=== PATIENT | female | born 2000 | race Caucasian/White ===

== ENCOUNTER 2023-07-26 13:55 | Emergency (ER) | payer BC, SELFPAY ==
[2023-07-26 13:58] VITALS: BP 152/82
[2023-07-26 14:41] VITALS: BMI 21.8
[2023-07-26] MEDS: NSS 1000 IV (15:02)
[2023-07-26 15:06] LABS: % Basophils 0.5 % (0-2); % Immature Granulocytes 0.4 % (0-0.5); % Lymphocytes 14.9 % (20.5-51.1); % Monocytes 4.1 % (1.7-9.3); % Neutrophils 79.1 % (42.2-75.2); Absolute Basophils 0.1 10^3/uL (0-0.2); Absolute Eosinophils 0.1 10^3/uL (0-0.7); Absolute Lymphocytes 1.7 10^3/uL (1.2-3.4); Absolute Monocytes 0.5 10^3/uL (0.1-0.6); Absolute Neutrophils 8.8 10^3/uL (1.4-6.5); Hematocrit 41.5 % (37.0-47.0); Hemoglobin 13.9 g/dL (12.0-16.0); Mean Corp Hgb Conc. 33.5 g/dL (33.0-37.0); Mean Corpuscular Hgb 28.9 pg (27.0-31.0); Mean Corpuscular Volume 86.3 fL (81.0-99.0); Nucleated Red Blood Cells % 0 %; Platelet Count 258 10^3/uL (130-400); Red Blood Cell Count 4.81 10^6/uL (4.20-5.40); Red Cell Dist. Width 13.4 % (11.5-14.5); White Blood Cell Count 11.1 10^3/uL (4.8-10.8)
--- NOTE | 2023-07-26 15:13 | ED.GENMED ---
History of Present Illness
<Iveth Covarrubias PA-C - Last Filed: 07/26/23 20:16>
General
Chief Complaint: Headache
Source: patient
Exam Limitations: none
Time Seen by Provider: 07/26/23 14:06
Nursing documentation reviewed up to this point in time: agreed with
Travel History
Have you had any contact with someone who has COVID-19?: No
Do you have any symptoms of coronavirus? Fever > 100 degrees, chills, cough, shortness of breath, sore throat, loss of taste or smell, muscle aches, or headache?: No
History of Present Illness
History of Present Illness:
Patient is a 22-year-old female with no past medical history presenting for evaluation of headache. Patient states that she had a gradual onset headache over the past 2 days with acute worsening this morning while she was lying in bed around noon.
Headache is located in her left frontal region behind her eye. There is some associated photophobia and nausea. She also endorses nasal congestion over the past few days. She denies any true visual changes, neck pain, vomiting, eye tearing,
fever, chills. She has been treating headache with ibuprofen over the past few days. She denies any falls or trauma to her head over the past few days.
Patient believes that this headache is due to a sinus infection. She went to urgent care this morning and they referred her to the emergency department for further evaluation.
Patient's last menstrual period was 1 week ago
Phy Exam
<Iveth Covarrubias PA-C - Last Filed: 07/26/23 20:16>
Physical Exam
Physical Exam:
General: In mild distress due to pain, non-toxic appearing
Vitals: Mildly hypertensive, otherwise vital signs stable; afebrile
HEENT: Atraumatic, normocephalic; pupils equal round reactive light bilaterally, sclera noninjected bilaterally, extraocular muscles intact, posterior pharynx nonerythematous, protecting airway; significant tenderness palpation on left frontal sinus
Neck: appears supple, no meningeal signs, normal range of motion
CV: Regular rate and rhythm, heart sounds normal, no evidence of cyanosis
Resp: No evidence of respiratory distress, lungs clear bilaterally
Abd: Soft, nontender, non-distended
Extremities: No deformities, no evidence of cyanosis or edema; strength 5 out of 5 in upper and lower extremities
Neuro: alert and oriented x 3; speech normal, cranial nerves II through XII intact, sensation intact, normal [id number]
Psych: Normal affect
Skin: Intact, no rashes
Course
<Iveth Covarrubias PA-C - Last Filed: 07/26/23 20:16>
Orders/Labs/Results
Orders:
Orders
07/26/23 14:21
CT Head W/o Iv Contrast Urgent
Comment:
Reason For Exam: worsening headache
Test Result ONCE
07/26/23 14:48
COVID-19 Antigen Urgent
Source: Nasal Swab
Complete Blood Count/With Diff Urgent
Comprehensive Metabolic Panel Urgent
HCG, Serum Qualitative Screen Urgent
Influenza A+B Rapid Molecular Urgent
ROSSANA Source: Nasal Swab
Specimen Description:
07/26/23 14:56
0.9% Sodium Chloride 1000 ml [Nss] 1,000 ml IV BOLUS
Acetaminophen [Tylenol] 650 mg PO NOW STA
07/26/23 15:02
Pseudoephedrine [Sudafed] 30 mg PO NOW STA
07/26/23 15:11
Diphenhydramine [Benadryl] 25 mg IV NOW STA
Metoclopramide [Reglan] 10 mg IV NOW STA
07/26/23 15:38
Ketorolac [Toradol] 15 mg IV NOW STA
07/26/23 16:11
Amoxicillin 875 mg/Clav 125 mg [Augmentin 875 mg/125 mg] 1 tablet PO NOW STA
Pseudoephedrine [Sudafed] 30 mg PO NOW STA
Abnormal Lab Results
07/26/23
14:48
WBC 11.1 H 10^3/uL
(4.8-10.8)
Absolute Neuts (auto) 8.8 H 10^3/uL
(1.4-6.5)
Neutrophils % 79.1 H %
(42.2-75.2)
Lymphocytes % 14.9 L %
(20.5-51.1)
07/26/23 14:48
07/26/23 14:48
Vital Signs
Initial and Last Documented VS:
Initial Vital Signs
Temp Pulse Resp BP Pulse Ox
98.6 F 67 18 152/82 100
07/26/23 13:58 07/26/23 13:58 07/26/23 13:58 07/26/23 13:58 07/26/23 13:58
Last Documented Vital Signs
Temp Pulse Resp BP Pulse Ox
98.6 F 67 18 152/82 97
07/26/23 13:58 07/26/23 13:58 07/26/23 13:58 07/26/23 13:58 07/26/23 14:54
<Marc Terrazas MD - Last Filed: 07/26/23 15:43>
Orders/Labs/Results
Orders:
Orders
07/26/23 14:21
CT Head W/o Iv Contrast Urgent
Comment:
Reason For Exam: worsening headache
Test Result ONCE
07/26/23 14:48
COVID-19 Antigen Urgent
Source: Nasal Swab
Complete Blood Count/With Diff Urgent
Comprehensive Metabolic Panel Urgent
HCG, Serum Qualitative Screen Urgent
Influenza A+B Rapid Molecular Urgent
ROSSANA Source: Nasal Swab
Specimen Description:
07/26/23 14:56
0.9% Sodium Chloride 1000 ml [Nss] 1,000 ml IV BOLUS
Acetaminophen [Tylenol] 650 mg PO NOW STA
07/26/23 15:02
Pseudoephedrine [Sudafed] 30 mg PO NOW STA
07/26/23 15:11
Diphenhydramine [Benadryl] 25 mg IV NOW STA
Metoclopramide [Reglan] 10 mg IV NOW STA
07/26/23 15:38
Ketorolac [Toradol] 15 mg IV NOW STA
07/26/23 16:11
Amoxicillin 875 mg/Clav 125 mg [Augmentin 875 mg/125 mg] 1 tablet PO NOW STA
Pseudoephedrine [Sudafed] 30 mg PO NOW STA
Abnormal Lab Results
07/26/23
14:48
WBC 11.1 H 10^3/uL
(4.8-10.8)
Absolute Neuts (auto) 8.8 H 10^3/uL
(1.4-6.5)
Neutrophils % 79.1 H %
(42.2-75.2)
Lymphocytes % 14.9 L %
(20.5-51.1)
07/26/23 14:48
07/26/23 14:48
Vital Signs
Initial and Last Documented VS:
Initial Vital Signs
Temp Pulse Resp BP Pulse Ox
98.6 F 67 18 152/82 100
07/26/23 13:58 07/26/23 13:58 07/26/23 13:58 07/26/23 13:58 07/26/23 13:58
Last Documented Vital Signs
Temp Pulse Resp BP Pulse Ox
98.6 F 67 18 152/82 97
07/26/23 13:58 07/26/23 13:58 07/26/23 13:58 07/26/23 13:58 07/26/23 14:54
<Iveth Covarrubias PA-C - Last Filed: 07/26/23 20:16>
MDM/Problems Addressed
Differential Diagnosis Includes:
Acute sinusitis, viral illness, migraine headache, cluster headache, tension headache, meningitis, intraparenchymal bleed
MDM/Problems Addressed:
Patient is a 22-year-old female with history of frequent sinus infections presenting with a few days of headache and nasal congestion with acute worsening this morning. Patient with dull headache over left frontal sinus for the past few days and
around noon today noticed acute onset worsening. No fever, chills, neck pain. Patient is mildly hypertensive, otherwise vital signs stable. She is afebrile. Physical exam as document above. She has a normal neurologic exam and no meningeal
signs. She does have significant tenderness over her left frontal sinus. Given acute onset nature of headache will obtain head CT. Will check basic labs and viral swabs. Plan to give Sudafed/Tylenol for headache�patient states she cannot. Will
start IV fluids and give Reglan/Benadryl for headache.
Patient with very mild leukocytosis otherwise no clinically significant abnormalities on labs. COVID and flu swabs were negative. Head CT shows complete opacification of the left frontal sinus consistent with sinusitis. No other acute
intracranial abnormality noted. This is consistent with location of patient's headache.
Given there is no evidence of bleed�will give 15 IV Toradol, Sudafed, Augmentin. Will reassess.
Patient states headache is significantly improved following Toradol. Patient is stable for discharge with return precautions. Will start course of Augmentin for sinusitis, Flonase. Will provide referral for ENT. Patient comfortable this plan.
All questions answered.
Chronic conditions affecting care:
N/A
Acute Exacerbation and/or Progression of Chronic Illness:
Acute sinusitis
<Iveth Covarrubias PA-C - Last Filed: 07/26/23 20:16>
*Radiology
Radiology exam reviewed: preliminary read by ED provider and radiology read reviewed
*Pulse Oximetry
Patient hypoxic: no
*[employer] Interpretation
Rate: [employer] [facility]- N/A
*Critical Care Note
Total Time (30-74mins, 75-104mins- exclusive of procedures): Not Applicable
ED Attending Note
<Iveth Covarrubias PA-C - Last Filed: 07/26/23 20:16>
-
Portions of this chart may have been created with voice recognition software.� Occasional wrong word or��sound alike� substitutions may have occurred due to the inherent limitations of voice recognition software.
<Marc Terrazas MD - Last Filed: 07/26/23 15:43>
ED Attending Note
Patient seen and examined by attending physician: Yes
ED Attending Note:
HPI: 22-year-old female with no chronic medical issues who presents to the emergency department for evaluation of headache. Patient reports that she has been sick with congestion and mild headache for the past 2 to 3 days. She reports headache is
a pressure sensation in the left forehead and maxillary region. She says that she had been controlling it with ibuprofen for the past few days. She says this morning she felt her headache got a lot worse and so she came to the emergency room for
assessment. She has had some nausea no vomiting. She denies any fever. She denies any neck pain or stiffness. She denies any flashes/floaters or aura. She denies any change in her vision or pain in the eye. She denies any other complaints
today. She denies trauma to the head and denies similar symptoms in the past.
ROS: Positive for congestion, headache, nausea; negative for vision changes, neck pain, neck stiffness, vomiting
Physical exam:
General: Awake, alert, oriented x3; no acute distress
Head: Normocephalic, atraumatic; she does have some tenderness in the left frontal and maxillary sinuses but no erythema or swelling of the face
Eyes: Conjunctiva normal, EOMI, pupils equal round reactive to light bilaterally
Ears: TMs clear bilaterally
Nose: Some swelling, erythema of the nasal turbinates bilaterally
Throat: Airway intact, handling secretions
Neck: Trachea midline, supple without meningismus
Lungs: Breathing comfortably no distress
Heart: Regular rate
Neuro: Cranial nerves intact 2-12, speech fluent with no dysarthria, no motor or sensory deficits
Skin: no rash
Extremities: No edema in extremities, warm well-perfused
Differential diagnosis: Sinusitis/sinus headache, tension headache, migraine headache, somewhat lower clinical suspicion for emergent pathology such as subarachnoid hemorrhage; very low suspicion for meningitis
Medical decision makin-year-old female presents for evaluation of gradual onset headache over the past few days worse this morning associated with significant nasal congestion and tenderness of the sinuses. Hypertensive but otherwise normal
vitals. Physical exam as above. Will plan to check CT head. Check basic labs and hCG. Swab for COVID and flu. Plan to treat with decongestant, Tylenol, fluids to start.
Patient reportedly has trouble swallowing pills will hold decongestant and Tylenol instead treat with Reglan/Benadryl, Toradol for headache and continue with fluids. Reviewed initial labs her CBC is significant for slight leukocytosis, CMP
unremarkable, hCG negative, viral swabs negative. Awaiting CT head results�imaging initially reviewed by me no clear acute hemorrhage or other acute pathology noted.
Chronic conditions affecting care: N/A
Acute exacerbation or progression of chronic illness: Hypertensive
History source: Patient
Data reviewed: N/A
Medications/testing considered: N/A
Social determinants of health: N/A
Discussion with other providers: N/A
Discharge Plan
Departure
Patient Disposition: Home (Routine Discharge)
Date of Disposition: 07/26/23
Time of Disposition: 17:02
Patient with high blood pressure during this ER visit?: Yes
Discharge Problem:
Acute sinusitis
Instructions: Sinusitis, Adult (DC)
Prescriptions:
New
amoxicillin-pot clavulanate 875-125 mg tablet
1 tab PO BID 10 Days Qty: 20 0RF
fluticasone propionate [Flonase Allergy Relief] 50 mcg/actuation spray,suspension
1 spray intranasal BID Qty: 16 0RF
No Action
prednisone 10 MG tablet
10 mg PO Daily Qty: 15 0RF
Rx Instructions:
Take 5 tablets on day 1 then taper 4,3,2,1 after.
sucralfate 1 GM/10 ML suspension
1 gm PO QID Qty: 10 0RF
docusate sodium [Colace] 100 MG capsule
100 mg PO BID Qty: 20 0RF
Referrals:
Marc Burks MD [Active] - Call in 1-3 days for appt (ENT)
Tahir Curry MD [Family Provider] -
Activity Restrictions/Additional Instructions:
Thank you for visiting the Emergency Department at [facility].
1. Please schedule a follow up appointment as directed. Call first thing tomorrow morning to make an appointment.
2. If indicated, please take your medications as instructed and indicated on discharge paperwork.
3. If any of your symptoms do not improve, or persist, or become more severe within 6-12 hours, please return to the emergency department for further care.
4. Please return to the emergency department if you develop a headache, neck pain/stiffness, fever greater than 100.4F, chest pain, shortness of breath, persistent nausea, vomiting, slurred speech, difficulty walking, numbness/tingling, weakness,
signs of infection or any other symptoms that are worrisome to you.
Please call [phone] if you have any questions.
Interventions
Interventions:
*Risk Screen - Suicide Last Done: 07/26/23 14:49
*General Assessment Last Done: 07/26/23 14:49
*Neglect/Abuse Screening Last Done: 07/26/23 14:49
*ED COVID-19 Vaccine History Last Done: 07/26/23 14:49
*Nursing Disposition Last Done: 07/26/23 17:00
ED- Neurological Assessment Last Done: 07/26/23 14:54
Discharge Date and Time
Discharge Date/Time: 07/26/23 17:00
[2023-07-26] MEDS: BENADRYL 25 MG IV (15:17)
[2023-07-26 15:19] LABS: HCG, Serum Qualitative Screen Negative
[2023-07-26] MEDS: REGLAN 10 MG IV (15:19)
[2023-07-26 15:20] LABS: COVID-19 Antigen Negative (Negative)
[2023-07-26 15:22] LABS: ALT (SGPT) 16 U/L (0-35); AST (SGOT) 25 U/L (14-36); Albumin 4.6 g/dl (3.5-5.0); Alkaline Phosphatase 99 U/L (38-126); Blood Urea Nitrogen 14 mg/dl (7-17); Calcium 9.8 mg/dl (8.4-10.2); Carbon Dioxide 28 mmol/L (22-30); Chloride 99 mmol/L (98-107); Estimated Creatinine Clearance 109 ml/min; Glucose 92 mg/dl (70-99); Potassium 4.1 mmol/L (3.5-5.1); Sodium 135 mmol/L (135-145); Total Bilirubin 0.4 mg/dl (0.2-1.3); Total Protein 6.9 g/dl (6.3-8.2); eGFR > 60.00
[2023-07-26] MEDS: TORADOL 15 MG IV (15:59)
[2023-07-26] MEDS: SUDAFED 30 MG PO (16:16)
[2023-07-26] MEDS: AUGMENTIN 875 MG/125 MG 1 TABLET PO (16:16)
== END 2023-07-26 17:00 | disposition home or self-care (01) ==
LOC: EMR 13:55
PROVIDERS: EMERGENCY PHYSICIAN Emergency Medicine; FAMILY PHYSICIAN Family Medicine
DX: J01.90 Acute sinusitis, unspecified (principal); R03.0 Elevated blood-pressure reading, without diagnosis of hypertension; Z11.52 Encounter for screening for COVID-19
CPT/HCPCS: 99284; 96374; 96375 ×2; 96361; 70450; 80053; 84703; 85025; 87502; 87811

== ENCOUNTER 2024-07-06 06:22 | Day surgery (SDC) | payer BC, SELFPAY | END 2024-07-06 12:51 | disposition home or self-care (01) | LOC: GI 06:22 | PROVIDERS: ATTENDING PHYSICIAN Surgery | DX: K62.5 Hemorrhage of anus and rectum (principal); K64.0 First degree hemorrhoids | CPT/HCPCS: 45378; 46221 ==

== ENCOUNTER 2024-11-06 09:07 | Emergency (ER) | payer OTHER, SELFPAY ==
[2024-11-06 09:11] VITALS: BP 135/97
[2024-11-06 10:07] VITALS: BMI 21.4
[2024-11-06 10:09] VITALS: BP 123/92
--- NOTE | 2024-11-06 10:28 | ED.GENMED ---
History of Present Illness
General
Chief Complaint: Headache
Time Seen by Provider: 11/06/24 10:03
History of Present Illness
History of Present Illness:
24-year-old female presents emergency department for evaluation of severe left frontal and occipital headache that woke her up from sleep at about 5 to 5:30 AM today. Headache feels somewhat comparable to her previous sinus issues however has never
had occipital pain with this. Has been vomiting as a result of the headache. Has prior issues with chronic sinusitis for which she sees an ENT but has never had this severe pain. Took Afrin and no [id number] medications otherwise. No
history of migraines
Review of Systems
Review of Systems
Allergies reviewed?: Yes
All Other Systems: ROS reviewed and negative except as documented in HPI and ROS
Phy Exam
Physical Exam
Physical Exam:
GEN: Well appearing, NAD, WDWN
HEENT: Oral mucosa moist, no scleral icterus, no nasal congestion
Cardiac: Regular rate
Lung: No respiratory distress, no tachypnea
MSK: No gross deformity or injuries
Skin: Good color, no pallor or jaundice, no rashes
Neuro: AO x3; CN II-XII grossly intact. BUE strength 5/5 in all allison, sensation intact and symmetric. BLE strength 5/5 in all allison, sensation intact and symmetric
Psych: Calm, cooperative
Course
Orders/Labs/Results
Orders:
Orders
11/06/24 10:28
CT Head W/o Iv Contrast Urgent
Comment:
Reason For Exam: severe headache
Test Result ONCE
11/06/24 10:30
Complete Blood Count/No Diff Urgent
Comprehensive Metabolic Panel Urgent
HCG, Serum Qualitative Screen Urgent
11/06/24 11:57
Ketorolac [Toradol] 15 mg IV NOW STA
Magnesium Sulfate 2 Gram/50 ml [Magnesium Sulfate] 2 gram in 50 ml IV NOW
Metoclopramide [Reglan] 10 mg IV NOW STA
11/06/24 12:39
Acetaminophen 1000MG/100Ml [Ofirmev] 1,000 mg in 100 ml IV ONCE
Acetaminophen IV Indication:: ED Narcotic Naive Pt-ONCE
Abnormal Lab Results
11/06/24
10:30
Glucose 111 H mg/dl
(70-99)
11/06/24 10:30
11/06/24 10:30
Vital Signs
Initial and Last Documented VS:
Initial Vital Signs
Temp Pulse Resp BP Pulse Ox
98.8 F 56 18 135/97 100
11/06/24 09:11 11/06/24 09:11 11/06/24 09:11 11/06/24 09:11 11/06/24 09:11
Last Documented Vital Signs
Temp Pulse Resp BP Pulse Ox
98.8 F 56 18 136/84 100
11/06/24 09:11 11/06/24 09:11 11/06/24 09:11 11/06/24 13:00 11/06/24 10:29
MDM/Problems Addressed
MDM/Problems Addressed:
CT of the head was obtained due to patient's acute severe nature of headache and this was reassuring. She was treated with migraine medications with good improvement in symptoms. No focal neurologic deficits and no fever warranting LP
*Pulse Oximetry
SaO2: 100
Oxygen Mode of Delivery: Room air
Patient hypoxic: no
*Critical Care Note
Total Time (30-74mins, 75-104mins- exclusive of procedures): Not Applicable
ED Attending Note
-
Portions of this chart may have been created with voice recognition software.� Occasional wrong word or��sound alike� substitutions may have occurred due to the inherent limitations of voice recognition software.
Discharge Plan
Departure
Patient Disposition: Home (Routine Discharge)
Date of Disposition: 11/06/24
Time of Disposition: 13:19
Patient with high blood pressure during this ER visit?: No
Discharge Problem:
Acute headache
Instructions: Headache, Adult (DC)
Prescriptions:
No Action
prednisone 10 MG tablet
10 mg PO Daily Qty: 15 0RF
Rx Instructions:
Take 5 tablets on day 1 then taper 4,3,2,1 after.
sucralfate 1 GM/10 ML suspension
1 gm PO QID Qty: 10 0RF
docusate sodium [Colace] 100 MG capsule
100 mg PO BID Qty: 20 0RF
amoxicillin-pot clavulanate 875-125 mg tablet
1 tab PO BID 10 Days Qty: 20 0RF
fluticasone propionate [Flonase Allergy Relief] 50 mcg/actuation spray,suspension
1 spray intranasal BID Qty: 16 0RF
Referrals:
UNKNOWN - PT NOT,INTERVIEWE [Family Provider]
Interventions
Interventions:
*Risk Screen - Suicide Last Done: 11/06/24 09:11
*General Assessment Last Done: 11/06/24 09:11
*Neglect/Abuse Screening Last Done: 11/06/24 09:11
*ED- Fall Risk Assessment Last Done: 11/06/24 10:07
*ED COVID-19 Vaccine History Last Done: 11/06/24 10:07
*Nursing Disposition Last Done: 11/06/24 13:26
ED- Neurological Assessment Last Done: 11/06/24 10:07
Discharge Date and Time
Discharge Date/Time: 11/06/24 13:27
Print Language: ROMANIAN
[2024-11-06 10:48] LABS: Hematocrit 39.0 % (37.0-47.0); Hemoglobin 13.3 g/dL (12.0-16.0); Mean Corp Hgb Conc. 34.1 g/dL (33.0-37.0); Mean Corpuscular Volume 86.1 fL (81.0-99.0); Platelet Count 174 10^3/uL (130-400); Red Cell Dist. Width 13.4 % (11.5-14.5)
[2024-11-06 11:00] VITALS: BP 122/85
[2024-11-06 11:18] LABS: HCG, Serum Qualitative Screen Negative
[2024-11-06 11:21] LABS: ALT (SGPT) 18 U/L (0-35); AST (SGOT) 24 U/L (14-36); Albumin 4.9 g/dl (3.5-5.0); Alkaline Phosphatase 83 U/L (38-126); Blood Urea Nitrogen 11 mg/dl (7-17); Calcium 9.9 mg/dl (8.4-10.2); Carbon Dioxide 24 mmol/L (22-30); Chloride 104 mmol/L (98-107); Estimated Creatinine Clearance 118 ml/min; Glucose 111 mg/dl (70-99); Potassium 3.7 mmol/L (3.5-5.1); Sodium 137 mmol/L (135-145); Total Protein 7.1 g/dl (6.3-8.2); eGFR > 60.00
[2024-11-06] MEDS: MAGNESIUM SULFATE 50 IV (12:14)
[2024-11-06] MEDS: TORADOL 15 MG IV (12:15)
[2024-11-06] MEDS: REGLAN 10 MG IV (12:15)
[2024-11-06 12:19] VITALS: BP 151/100
[2024-11-06] MEDS: OFIRMEV 100 IV (12:52)
[2024-11-06 13:00] VITALS: BP 136/84
== END 2024-11-06 13:27 | disposition home or self-care (01) ==
LOC: EMR 09:07
PROVIDERS: Physician Assistant; EMERGENCY PHYSICIAN Student in an Organized Health Care Education/Training Program
DX: R51.9 Headache, unspecified (principal)
CPT/HCPCS: 99285; 96365; 96375 ×3; 70450; 80053; 84703; 85027